=== PATIENT | male | born 1955 | race Caucasian/White ===

== ENCOUNTER 2018-10-15 13:57 | Outpatient (CLI) | payer OTHER ==
--- NOTE | 2018-10-15 14:29 | RAD ---
RIGHT HIP 2 VIEWS: HISTORY: Disability exam. FINDINGS: Mild degenerative change at the hip. Femoral head contour is normal. Joint space appears normal. M ild spurring from the femoral head and acetabulum. IMPRESSION: Mild degenerative change right hip. POS: [facility]
== END 2018-10-15 13:58 | disposition home or self-care (01) ==
LOC: BICRAD 13:57
PROVIDERS: ATTEND Internal Medicine
DX: Z02.71 Encounter for disability determination (principal); M16.11 Unilateral primary osteoarthritis, right hip